=== PATIENT | female | born 1990 ===

== ENCOUNTER 2024-09-03 12:00 | Inpatient (IN) | payer OTHER ==
[~2024-09-03] VITALS: Ht 162.6 cm; Wt 81.6 kg
[~2024-09-03 12:00] MED LIST: PRENATAL TABLE1 EAC1 PO
[2024-09-03 13:59] VITALS: BP 120/68
[2024-09-03 14:03] VITALS: BP 140/88
[2024-09-06 10:23] LABS: RH POSITIVE
[2024-09-08] MEDS ORDERED: CLINDAMYCIN PHOSPHATE 150 MG/ML (600mg) IV SCH ×2 (05:00→14:00)
[2024-09-08] MEDS ORDERED: CLINDAMYCIN PHOSPHATE 150 MG/ML (600mg) ONE (09:13)
[2024-09-08] MEDS ORDERED: POVIDONE-IODINE 118 ML BOTT TOP ONE (09:13)
[2024-09-08] MEDS ORDERED: HEMOSTATIC MATRIX 1 KIT KIT TOP ONE (10:45)
[2024-09-08] MEDS ORDERED: SUGAMMADEX SODIUM 200 MG/2 ML VIAL IV ONE (11:05)
[2024-09-08] MEDS ORDERED: MORPHINE SULFATE 4 MG,MORPHINE SULFATE 2 MG IV PRN (11:30)
[2024-09-08] MEDS ORDERED: ONDANSETRON HCL 2 MG/ML VIAL IV PRN (11:30)
[2024-09-08] MEDS ORDERED: RINGERS SOLUTION,LACTATED 1,000 ML IV SCH (11:45)
[2024-09-08] MEDS ORDERED: MORPHINE SULFATE 4 MG/ML VIAL IV ONE ×2 (11:55→12:25)
[2024-09-08 13:42] VITALS: BP 120/68
[2024-09-08 16:03] VITALS: BP 129/75
[2024-09-08 18:46] LABS: HEMATOCRIT 33.7 % (36.0-45.00); HEMOGLOBIN 11.2 g/dL (12.0-15.00); MEAN CELL VOLUME 81.8 fL (80.00-100.00); MEAN CORPUSCULAR HEMOGLOBIN 27.2 pg (27.00-32.0); MEAN CORPUSCULAR HGB CONC 33.2 g/dl (32.0-36.0); PLATELET COUNT 468 K/uL (150-450); RED BLOOD COUNT 4.12 M/uL (4.00-6.00)
[2024-09-08 23:28] VITALS: BP 125/79
[2024-09-09 04:30] VITALS: BP 130/79
[2024-09-09] MEDS ORDERED: GABAPENTIN 300 MG CAPSULE PO PRN (07:00)
[2024-09-09 08:00] VITALS: BP 126/80
[2024-09-09] MEDS ORDERED: ENOXAPARIN SODIUM 40 MG/0.4 ML SYRINGE SUBCUTANEO SCH (09:00)
[2024-09-09] MEDS ORDERED: ACETAMINOPHEN 325 MG TABLET PO SCH (12:00)
[2024-09-09 16:51] VITALS: BP 140/85
[2024-09-09] MEDS ORDERED: HYOSCYAMINE SULFATE 0.125 MG TAB.SUBL SL SCH (18:00)
[2024-09-09 23:37] VITALS: BP 127/76
[2024-09-10] MEDS ORDERED: ACETAMINOPHEN325 M1 PO (06:19)
[2024-09-10] MEDS ORDERED: HYOSCYAMINE0.125 M1 SL (06:19)
[2024-09-10] MEDS ORDERED: GABAPENTIN300 MG PO (06:20)
[2024-09-10 07:53] VITALS: BP 117/77
== END 2024-09-10 08:27 | disposition home or self-care (01) | DRG 743 ==
LOC: O/R 09-08 06:39 → OB/GYN 09-08 06:39 → SURH 09-08 07:00 → OB/GYN 09-08 12:45
PROVIDERS: ADMIT Obstetrics & Gynecology Gynecology; ATTEND Obstetrics & Gynecology Gynecology
PROC: 0UT70ZZ Resection of Bilateral Fallopian Tubes, Open Approach (ICD-10-PCS; 2024-09-08)
PROC: 0UT90ZZ Resection of Uterus, Open Approach (ICD-10-PCS; principal; 2024-09-08 07:00)
DX: D25.1 Intramural leiomyoma of uterus (principal); N72 Inflammatory disease of cervix uteri